=== PATIENT | female | born 1955 | race Caucasian/White ===

== ENCOUNTER → 2016-04-30 | Outpatient (CLI) | payer OTHER | END | disposition home or self-care (01) | LOC: PCVCIMAG 09:09 | PROVIDERS: ATTEND Nuclear Medicine Nuclear Cardiology | DX: G45.1 Carotid artery syndrome (hemispheric) (principal); E78.00 Pure hypercholesterolemia, unspecified; I10 Essential (primary) hypertension | CPT/HCPCS: 93880 ==

== ENCOUNTER → 2018-12-17 | Outpatient (CLI) | payer OTHER ==
[~2018-12-17] MED LIST: REGADENOSON 0.4 MG/5 ML DISP.SYRIN. IV ONE
--- NOTE | 2018-12-17 09:04 | PCVCIMAG ---
APPROVED REPORT Indications Stenosis Risk Factors Hypertension: History of Smoking Doppler Spectral Velocity Analysis PSV / EDVPSV / EDV ECA (R) 76 / 10 cm/sECA (L) 85 / 14 cm/s dICA (R) 93 / 41 cm/sdICA (L) 74 / 35 cm/s Ayana (R) 112 / 42 cm/smICA (L) 95 / 40 cm/s pICA (R) 108 / 39 cm/spICA (L) 100 / 40 cm/s Bulb (R) 58 / 20 cm/sBulb (L) 61 / 19 cm/s dCCA (R) 52 / 17 cm/sdCCA (L) 71 / 20 cm/s mCCA (R) 69 / 20 cm/smCCA (L) 77 / 27 cm/s Vert (R) 36 / 9 cm/sVert (L) 59 / 20 cm/s ICA/CCA 2.15ICA/CCA 1.41 Basic Measurements Blood Pressure: Pulses: Right Left RightLeft Brachial(Sitting) 146/02iwVi640/93mmHgTemporal Real Time B-Mode Imaging Vert. (R)AntegradeVert. (L)Antegrade Findings RIGHT CAROTID: The carotid bulb has moderate plaque. The proximal internal carotid artery shows 40% stenosis. The common carotid artery shows no significant stenosis. The external carotid artery shows no significant stenosis. LEFT CAROTID: The carotid bulb has mild plaque. The proximal internal carotid artery shows <40% stenosis. The common carotid artery shows no significant stenosis. The external carotid artery shows no significant stenosis. Conclusion 40% stenosis of the right internal carotid artery with moderate plaque. <40% stenosis of the left internal carotid artery with mild plaque. Minimal change since 2017 study.
--- NOTE | 2018-12-17 10:01 | PCVCIMAG ---
APPROVED REPORT Study performed: 12/17/2018 09:06:34 EXAM: Comprehensive 2D, Doppler, and color-flow Echocardiogram [facility] BSA: 1.75 HR: 76 bpmBP: 146/90 mmHg Rhythm: NSR Other Information Study Quality: Adequate Risk Factors: Cardiac Risk Factors: Hyperlipidemia, HTN Indications Chest Pressure 2D Dimensions IVSd: 7.74 (7-11mm)LVOT Diam: 19.00 (18-24mm) LVDd: 47.74 mm PWd: 9.13 (7-11mm)Ascending Ao: 27.69 (22-36mm) LVDs: 31.95 (25-40mm) Left Atrium: 41.43 (27-40mm) Aortic Root: 26.39 mm LV Single Plane 4CH: 62.33 % LV Single Plane 2CH: 59.81 % Biplane EF: 60.8 % Volumes Left Atrial Volume (Systole) Single Plane 4CH: 25.05 mLSingle Plane 2CH: 44.16 mL LA ESV Index: 21.00 mL/m2 Aortic Valve AoV Peak Darius.: 1.57 m/s AO Peak Gr.: 9.87 mmHgLVOT Max P.64 mmHg LVOT Max V: 0.95 m/s HELEN Vmax: 1.74 cm2 Mitral Valve E/A Ratio: 0.8 MV Decel. Time: 254.28 ms MV E Max Darius.: 0.84 m/s MV A Darius.: 0.99 m/s IVRT: 65.74 ms TDI E/Lateral E': 10.50E/Medial E': 12.00 Medial E' Darius.: 0.07 m/s Lateral E' Darius.: 0.08 m/s Pulmonary Valve PV Peak Darius.: 1.27 m/sPV Peak Gr.: 6.47 mmHg Pulmonary Vein P Vein S: 0.72 m/sP Vein A: 0.35 m/s P Vein D: 0.31 m/sP Vein A Dur.: 96.9 msec P Vein S/D Ratio: 2.32 Tricuspid Valve TR Peak Darius.: 2.54 m/sRAP Estimate: 7.00 mmHg TR Peak Gr.: 25.90 mmHg PA Pressure: 33.00 mmHg Left Ventricle The left ventricle is normal size. There is normal LV segmental wall motion. There is normal left ventricular wall thickness. Left ventricular systolic function is normal. The left ventricular ejection fraction is within the normal range. LVEF is 60-65%. Mild diastolic dysfunction is present (impaired relaxation pattern). Right Ventricle The right ventricle is normal size. The right ventricular systolic function is normal. Atria The left atrium size is normal. The right atrium size is normal. Aortic Valve The aortic valve is normal in structure. No aortic regurgitation is present. There is no aortic valvular stenosis. Mitral Valve The mitral valve is normal in structure. Mild mitral regurgitation. No evidence of mitral valve stenosis. Tricuspid Valve The tricuspid valve is normal in structure. Mild tricuspid regurgitation. Pulmonary artery pressure is 30 mmHg. Pulmonic Valve The pulmonary valve is normal in structure. Mild pulmonic regurgitation. Great Vessels The aortic root is normal in size. The ascending aorta is normal in size. IVC is normal in size and collapses >50% with inspiration. Pericardium There is no pericardial effusion. <Conclusion> Left ventricular systolic function is normal. There is normal LV segmental wall motion. LVEF is 60-65%. Mild diastolic dysfunction The aortic valve is normal in structure. No aortic regurgitation or stenosis. The mitral valve is normal in structure. Mild mitral regurgitation. Mild tricuspid regurgitation. Pulmonary artery pressure of 30 mmHg. There is no pericardial effusion.
--- NOTE | 2018-12-17 13:26 | PCVCIMAG ---
APPROVED REPORT Imaging Protocol: Rest Tc-99m/Stress Tc-99m 1 day Study performed: 12/17/2018 10:04:28 Indication: Chest pain Patient Location: Out-Patient Stress Nurse: Rebecca Verde RN, Ada Shaw RN [place] Tech:Viv Luis [facility] Ht: 5 ft 2 in Wt: 162 lbs BSA: 1.75 m2 HR: 71 bpm BP: 170/76 mmHg BMI: 29.6 Rhythm: Sinus Rhythm, nonspecific ST abnormalities Medical History Medical History: HTN, Hyperlipidemia, CVD, Former Smoker Medications: Aspirin, Lisinopril, Crestor, Catapess Allergies: Morphine, Iodine Cardiac Risk Factors: Age, FHX of CAD Pretest Chest Pain Characteristics: No chest pain Exercise History: Indeterminate Resting Data Rest SPECT myocardial perfusion imaging was performed in supine position 45 minutes following the intravenous injection of 11.1 mCi of Tc-99m Sestamibi. Time of rest injection: 0930 Administration Route: IV Administration Site: Right Hand Pharmacologic Stress Pharmacologic stress test was performed by injecting Regadenoson 0.4 mg IV push over 10-15 seconds immediately followed by the intravenous injection of 34.2 mCi of Tc-99m Sestamibi. Time of stress injection: 1050 Date: 12/17/2018 Administration Route: IV Administration Site: Right Hand Gated Stress SPECT was performed 45 minutes after stress injection. The images were gated to evaluate regional wall motion and calculate left ventricular ejection fraction. Stress Test Details Stress Test: Pharmacologic stress testing performed using 0.4 mg of regadenoson per 5 mL given IV over 10 seconds. Reason for pharmacologic stress test: physical limitation, sciatica. HRMax Heart Rate (APMHR): 156 bpm Resting HR: 71 bpmTarget HR (85% APMHR): 132 bpm Max HR Achieved: 126 bpm % of APMHR: 80 Recovery HR: 91 bpm BP Resting BP: 170/76 mmHg Max BP: 166/76 mmHg Recovery BP: 145/62 mmHg ECG Resting ECG: Sinus Rhythm, nonspecific ST abnormalities Stress ECG: Sinus Tachycardia, nonspecific ST- abnormalities ST Change: None Maximum ST Deviation: 0 mm Arrhythmia: None Recovery ECG: Sinus Rhythm, nonspecific ST abnormalities Recovery ST Change: Normal Recovery ST Deviation: 0 mm Clinical Reason for Termination: Completed protocol Stress Symptoms: Dyspnea, Tachycardia Symptoms resolved with caffeine. Stress ECG Conclusion ECG: Non-ischemic Clinical: Non-ischemic Study Quality Study: Good Study Data Post stress, the left ventricular ejection was 75%.. SSS: 0 SRS: 0 SDS: 0 TID = 0.95. Perfusion No evidence of stress induced ischemia or prior myocardial infarction. Wall Motion Normal left ventricular size and function with no regional wall motion abnormalities. Nuclear Conclusion No evidence of stress induced ischemia or prior myocardial infarction. Normal left ventricular size and function with no regional wall motion abnormalities. Post stress, the left ventricular ejection was 75%. No prior study available for comparison. Interpreted by: Fahad Mcdonnell MD Electronically Approved: 12/17/2018 12:24:42 <Conclusion> ECG: Non-ischemic Clinical: Non-ischemic
== END | disposition home or self-care (01) ==
LOC: PCVCIMAG 09:05
PROVIDERS: ATTEND Internal Medicine
DX: I65.23 Occlusion and stenosis of bilateral carotid arteries (principal); I08.1 Rheumatic disorders of both mitral and tricuspid valves; I10 Essential (primary) hypertension; E78.5 Hyperlipidemia, unspecified; R73.03 Prediabetes; R07.89 Other chest pain; Z79.82 Long term (current) use of aspirin; Z87.891 Personal history of nicotine dependence
CPT/HCPCS: 78452; 93017; 93306; 93880; A9500; J2785